=== PATIENT | female | born 1980 | race African-American/Black ===

== ENCOUNTER 2017-05-23 00:27 | Emergency (ER) | payer BC ==
[~2017-05-23] VITALS: Ht 152.4 cm; Wt 89.6 kg
[~2017-05-23 00:27] MED LIST: CARAFATE1 GM PO; FUROSEMIDE20 MG PO; LISINOPRIL20 MG PO; METFORMIN HCL500 MG PO; OMEPRAZOLE40 M1 PO
[2017-05-23 01:11] LABS: HEMATOCRIT 37.9 % (36.0-46.0); HEMOGLOBIN 13.1 G/DL (11.9-15.5); MCH 30.9 PG (29.0-34.0); MCHC 34.6 G/DL (30.0-36.0); MCV 89.4 FL (83-99); PLATELET COUNT 327 K/uL (156-360); RBC DIS.WIDTH-CV 11.7 % (11.8-14.6); RED BLOOD COUNT 4.24 M/uL (3.80-5.20); WHITE BLOOD COUNT 12.4 K/uL (4.1-10.2)
[2017-05-23 01:21] LABS: ALBUMIN 3.8 g/dL (3.2-4.8); CHLORIDE 105 mEq/L (99-109); POTASSIUM 3.4 mEq/L (3.7-5.4); SODIUM 138 mEq/L (136-147)
[2017-05-23 01:24] LABS: GLUCOSE 120 mg/dL (70-99); TOTAL PROTEIN 7.2 g/dL (6.4-8.3)
[2017-05-23 01:26] LABS: TOTAL BILIRUBIN 0.3 mg/dL (0.0-1.0)
[2017-05-23 01:27] LABS: ALKALINE PHOSPHATASE 104 IU/L (3-129); CREATININE 0.9 mg/dL (0.6-1.3); GFR ESTIMATE (CALCULATED) > 59 mL/min/
[2017-05-23 01:28] LABS: UREA NITROGEN (BUN) 15 mg/dL (9-23)
[2017-05-23 01:29] LABS: AST (GOT) 23 IU/L (2-34)
[2017-05-23 01:30] LABS: ALT (GPT) 12 IU/L (3-49)
[2017-05-23 01:31] LABS: LIPASE 12 U/L (1.0-51.0)
[2017-05-23 01:37] LABS: QUANTITATIVE HCG < 4.0 MIU/ML
[2017-05-23 04:37] LABS: APPEARANCE CLEAR ((CLEAR)); BILIRUBIN NEGATIVE; BLOOD NEGATIVE; COLOR YELLOW ((YELLOW)); GLUCOSE (STRIP) NEGATIVE; KETONES NEGATIVE; LEUKOCYTES TRACE; NITRITE NEGATIVE; PROTEIN (STRIP) NEGATIVE; UROBILINOGEN 0.2 MG/DL (0.2-1.0)
[2017-05-23 04:45] LABS: BACTERIA RARE /HPF; EPITHELIAL CELLS 2+ /HPF; MUCUS TRACE /LPF; RED BLOOD CELLS 0-5 /HPF (0-5); UCUL ADDED? NO; WHITE BLOOD CELLS 0-5 /HPF (0-5)
[2017-05-23 04:54] LABS: SPECIFIC GRAVITY 1.074 (1.000-1.030)
[2017-05-23] MEDS ORDERED: ZOFRAN4 MG SL (06:23)
[2017-05-23] MEDS ORDERED: PROTONIX40 MG PO (06:23)
[2017-05-23] MEDS ORDERED: PREDNISONE10 M1 PO (06:23)
[2017-05-23 06:45] VITALS: BP 106/82
== END 2017-05-23 07:07 | disposition home or self-care (01) ==
LOC: EME 00:27
DX: R10.13 Epigastric pain (principal); R11.2 Nausea with vomiting, unspecified; R93.5 Abnormal findings on diagnostic imaging of other abdominal regions, including retroperitoneum; Z90.49 Acquired absence of other specified parts of digestive tract; I10 Essential (primary) hypertension
CPT/HCPCS: 74177; 80053; 81003; 83605; 83690; 84702; 85027; 99281; 99284; J2270; J2405; J2930; J3010; J7030